=== PATIENT | female | born 1935 | race Caucasian/White ===

== ENCOUNTER → 2018-07-26 | Outpatient (CLI) | payer OTHER ==
[~2018-07-26] VITALS: Ht 149.9 cm; Wt 54.8 kg
[~2018-07-26] MED LIST: ACETAMINOPHEN500 MG PO; ASPIRIN81 M2 PO; BIOFREEZE118 ML TOP; EAR DROPS15 ML OTIC; FISH OIL 1,001000 M2 PO; IRON325 PO; JANUVIA50 MG PO; KETOCONAZOLE15 GM TOP; LIPITOR80 MG PO; LISINOPRIL20 MG PO; MAGOX 400400 MG PO; MELATONIN1 MG PO; METFORMIN HCL500 MG PO; NORVASC5 MG PO; SEROQUEL 25 MG25 MG PO; SYNTHROID100 MC1 PO; TOPROL XL100 MG PO; VITAMIN D31000 UNIT PO; VITAMINC500 PO; ZANTAC 150MG T150 MG PO
[2018-07-26 11:00] VITALS: BP 135/75
[2018-07-26 12:50] LABS: ABSOLUTE NEUTROPHILS 7.3 thou/uL (1.4-8.2); BASOPHILS 0.3 % (0.0-2.0); EOSINOPHILS 1.1 % (0.0-3.0); HEMATOCRIT 33.2 % (37.0-47.0); LYMPHOCYTES 27.4 % (24.0-44.0); MCH 27.7 pg (26.0-34.0); MCHC 33.2 g/dL (28.0-37.0); MCV 83.4 fL (80.0-100.0); MONOCYTES 6.3 % (1.0-8.0); PLATELET COUNT 242 thou/uL (150-400); POLYS 64.9 % (36.0-66.0); RBC 3.98 mil/uL (4.20-5.00); RDW 13.5 % (10.5-14.5); WBC 11.2 thou/uL (4.0-11.0)
[2018-07-26 13:06] LABS: ALBUMIN 3.6 g/dL (3.4-5.0); ANION GAP 15 mmol/L (7-16); BUN 22 mg/dL (7-18); CALCIUM 9.1 mg/dL (8.5-10.1); CHLORIDE 103 mmol/L (98-107); CHOLESTEROL 90 mg/dL (<200); CO2 28 mmol/L (21-32); CREATININE 0.9 mg/dL (0.6-1.0); HDL CHOLESTEROL 55 mg/dL (>40); SGOT 20 U/L (15-37); SGPT 24 U/L (30-65); SODIUM 146 mmol/L (136-145); TC:HDL 1.6 Ratio (Not establshd); TOTAL BILIRUBIN 0.3 mg/dL (<0.1-1.0); TOTAL PROTEIN 7.9 g/dL (6.4-8.2)
[2018-07-26 13:09] LABS: URINE BILIRUBIN NEGATIVE (Negative); URINE BLOOD NEGATIVE (Negative); URINE CLARITY CLEAR; URINE COLOR YELLOW; URINE GLUCOSE-RANDOM* NEGATIVE (Negative); URINE KETONES NEGATIVE (Negative); URINE LEUKOCYTES-REFLEX NEGATIVE (Negative); URINE NITRITE-REFLEX NEGATIVE (Negative); URINE PROTEIN (DIPSTICK) NEGATIVE (Negative); URINE SPECIFIC GRAVITY 1.015 (1.005-1.035); URINE UROBILINOGEN 0.2 E.U./dl (0.2-1.0)
[2018-07-26 13:23] LABS: GLUCOSE 153 mg/dL (74-106)
[2018-07-26 13:24] LABS: LDL CHOLESTEROL 29 mg/dL (<100); TRIGLYCERIDE 33 mg/dL (<150); VLDL 7 mg/dL (<40)
[2018-07-26 13:37] LABS: TSH 0.021 uIU/mL (0.358-3.740)
[2018-07-27 04:10] LABS: GLYCOHEMOGLOBIN (HGB A1C) 7.7 % (4.8-5.6)
== END ==
LOC: SEN 09:32
PROVIDERS: Nurse Practitioner Family
DX: Z09 Encounter for follow-up examination after completed treatment for conditions other than malignant neoplasm (principal); I10 Essential (primary) hypertension; E11.9 Type 2 diabetes mellitus without complications; K21.9 Gastro-esophageal reflux disease without esophagitis; Z79.899 Other long term (current) drug therapy

== ENCOUNTER → 2018-09-19 | Outpatient (CLI) | payer OTHER ==
[~2018-09-19] MED LIST changes: +CIPRO250 M1 PO
[2018-09-19 13:46] VITALS: BP 191/64
[2018-09-19 14:42] LABS: URINE BILIRUBIN NEGATIVE (Negative); URINE BLOOD TRACE (Negative); URINE CLARITY CLEAR; URINE COLOR YELLOW; URINE GLUCOSE-RANDOM* TRACE (Negative); URINE KETONES NEGATIVE (Negative); URINE LEUKOCYTES NEGATIVE (Negative); URINE NITRITE NEGATIVE (Negative); URINE PROTEIN (DIPSTICK) 1+ (Negative); URINE SPECIFIC GRAVITY >= 1.030 (1.005-1.035); URINE UROBILINOGEN 0.2 E.U./dl (0.2-1.0)
[2018-09-19 14:52] LABS: SQUAMOUS 0-3 Few /LPF (0-3)
[2018-09-19 14:53] LABS: URINE WBC 0-5 Rare /HPF (0-5)
[2018-09-19 14:54] LABS: BACTERIA 1-9 Few /HPF (None Seen); CASTS None Seen /LPF (None Seen); CRYSTALS None Seen /LPF (None Seen); URINE RBC 0-2 Rare /HPF (0-2)
== END ==
LOC: SEN 08:21
PROVIDERS: Nurse Practitioner Family
DX: M79.642 Pain in left hand (principal); M79.641 Pain in right hand; M79.89 Other specified soft tissue disorders; E11.9 Type 2 diabetes mellitus without complications; R30.9 Painful micturition, unspecified; I10 Essential (primary) hypertension; K21.9 Gastro-esophageal reflux disease without esophagitis

== ENCOUNTER → 2018-11-16 | Outpatient (CLI) | payer OTHER | LOC: SEN 11-09 15:29 | DX: I10 Essential (primary) hypertension (principal); E03.9 Hypothyroidism, unspecified; E11.9 Type 2 diabetes mellitus without complications; F32.9 Major depressive disorder, single episode, unspecified; F41.9 Anxiety disorder, unspecified; K21.9 Gastro-esophageal reflux disease without esophagitis; Z90.49 Acquired absence of other specified parts of digestive tract; Z79.899 Other long term (current) drug therapy ==